=== PATIENT | female | born 1990 | race Caucasian/White ===

== ENCOUNTER 2017-03-09 20:40 | Emergency (ER) | payer OTHER ==
[~2017-03-09] VITALS: Ht 170.2 cm; Wt 100.0 kg
[2017-03-09 20:47] VITALS: BP 139/73
[2017-03-09] MEDS ORDERED: ZYPREXA 5MG5 MG PO (22:04)
[2017-03-09] MEDS ORDERED: GLUCOPHAGE (22:04)
[2017-03-09] MEDS ORDERED: ZOLOFT25 M1 (22:05)
[2017-03-09] MEDS ORDERED: KLONOPIN 1MG1 MG (22:05)
== END 2017-03-09 21:35 | disposition home or self-care (01) ==
LOC: ED 20:40
DX: F29 Unspecified psychosis not due to a substance or known physiological condition (principal); R44.0 Auditory hallucinations; R44.1 Visual hallucinations; F32.9 Major depressive disorder, single episode, unspecified; F41.9 Anxiety disorder, unspecified; T43.596A Underdosing of other antipsychotics and neuroleptics, initial encounter; Z91.138 Patient's unintentional underdosing of medication regimen for other reason